=== PATIENT | male | born 1950 | race Two or more races ===

== ENCOUNTER → 2018-08-30 | Outpatient (CLI) | payer OTHER ==
[2018-08-30 16:03] LABS: Basophils # (auto) 0 uL; Basophils % (auto) 0.3 % (0.0-2.0); Eosinophils # (auto) 0.1 uL; Hematocrit 39.5 % (41.0-53.0); Lymphocytes # (auto) 1.8 uL; Lymphocytes % (auto) 32.7 % (10.0-50.0); Mean Corpuscular Hemoglobin 29.2 pg (28.0-32.0); Mean Corpuscular Hgb Conc. 32.9 g/dL (32.0-36.0); Mean Corpuscular Volume 88.8 fL (80.0-100.0); Monocytes # (auto) 0.4 uL; Monocytes % (auto) 7.4 % (0.0-12.0); Neutrophils # (auto) 3.1 uL; Neutrophils % (auto) 57.6 % (37.0-80.0); Nucleated Red Blood Cells % 0.1 %; Platelet Count (auto) 272 10^3/uL (140-450); Red Blood Cells 4.45 10^6/uL (4.5-5.90); Red Cell Distribution Width 14.3 % (11.8-14.3); White Blood Cell 5.4 10^3/uL (4.4-10.8)
[2018-08-30 16:20] LABS: Albumin 3.3 g/dL (3.4-5.0); Potassium 3.4 mmol/L (3.5-5.1)
[2018-08-30 16:24] LABS: BUN/Creatinine Ratio 18.6; Bilirubin, Total 0.6 mg/dL (0.2-1.0); Total Protein 7.7 g/dL (6.4-8.2)
[2018-08-30 16:29] LABS: Free T4 (Free Thyroxine) 0.92 ng/dL (0.89-1.76); Prostate Specific Antigen 0.21 ng/mL (0.0-4.0)
== END | disposition home or self-care (01) ==
LOC: LAB 15:32
PROVIDERS: ATTEND Internal Medicine
DX: M16.9 Osteoarthritis of hip, unspecified (principal); E66.9 Obesity, unspecified; G89.29 Other chronic pain
CPT/HCPCS: 36415; 80053; 80061; 84153; 84439; 84443; 85025; 85652

== ENCOUNTER → 2018-10-11 | Outpatient (CLI) | payer OTHER | END | disposition home or self-care (01) | LOC: LAB 16:03 | PROVIDERS: ATTEND Urology | DX: N40.0 Benign prostatic hyperplasia without lower urinary tract symptoms (principal) | CPT/HCPCS: 87086 ==

== ENCOUNTER 2023-07-26 12:21 | Inpatient (IN) | payer OTHER ==
[~2023-07-26] VITALS: Ht 175.3 cm; Wt 192.4 kg
[2023-07-26 13:58] LABS: Basophils # (auto) 0 10 ^3/uL (0-0.2); Eosinophils # (auto) 0.1 10 ^3/uL (0-0.8); Lymphocytes # (auto) 1.7 10 ^3/uL (0.4-5.4); Lymphocytes % (auto) 20.9 % (10.0-50.0); Monocytes # (auto) 0.7 10 ^3/uL (0-1.3); Neutrophils # (auto) 5.7 10 ^3/uL (1.6-8.6); Nucleated Red Blood Cells % 0.1 %; Red Cell Distribution Width 14.8 % (11.8-14.3)
[2023-07-26 14:00] LABS: Basophils % (auto) 0.6 % (0.0-2.0); Eosinophils % (auto) 1.1 % (0.0-7.0); Hematocrit 36.2 % (41.0-53.0); Hemoglobin 11.6 g/dL (13.5-17.5); Mean Corpuscular Hemoglobin 27.9 pg (28.0-32.0); Mean Corpuscular Hgb Conc. 31.9 g/dL (32.0-36.0); Mean Corpuscular Volume 87.5 fL (80.0-100.0); Monocytes % (auto) 8.1 % (0.0-12.0); Neutrophils % (auto) 69.3 % (37.0-80.0); Red Blood Cells 4.14 10^6/uL (4.5-5.90); White Blood Cell 8.2 10^3/uL (4.4-10.8)
[2023-07-26 14:12] LABS: Alanine Aminotransferase 19 U/L (7-40); Alkaline Phosphatase 101 U/L (46-116); Calcium 9.9 mg/dL (8.7-10.4); Carbon Dioxide 28 mmol/L (20-30); Chloride 104 mmol/L (98-107)
[2023-07-26 14:13] LABS: Albumin 4.4 g/dL (3.2-4.8); Anion Gap 8 (5-15); Aspartate Aminotransferase 22 U/L (13-40); BUN/Creatinine Ratio 23.4 (10.0-20.0); Bilirubin, Total 0.4 mg/dL (0.2-1.0); Blood Urea Nitrogen 18 mg/dL (9-23); Creatine Kinase IFCC 181 U/L (46-171); Glucose 99 mg/dL (74-106); Magnesium 2.2 mg/dL (1.6-2.6); Sodium 140 mmol/L (136-145)
[2023-07-26 14:21] LABS: INR 1.12 (0.9-1.15); Partial Thromboplastin Time 24.4 SEC (24.5-34.5); Prothrombin Time 11.8 sec (9.3-11.8)
[2023-07-26] MEDS: LACTATED RINGER'S 2,000 ML IV ONE (16:15)
[2023-07-26 21:10] LABS: Urine Bacteria None Seen /hpf (None Seen)
[2023-07-26 21:44] LABS: Urine Blood 1+ /uL (Negative); Urine Clarity Ex.Turbid (Clear); Urine Color Light-Orange (Yellow); Urine Mucus FEW (None Seen); Urine Protein, UAD 2+ (Negative); Urine Specific Gravity 1.028 (1.001-1.035); Urine Urobilinogen Normal (Negative); Urine WBC 1968 /hpf (0 - 3); Urine WBC Clumps PRESENT /hpf (None Seen)
[2023-07-26] MEDS ORDERED: ONDANSETRON HCL 4 MG/2 ML VIAL IV PRN (21:45)
[2023-07-26] MEDS: ATORVASTATIN 20 MG TAB PO SCH (22:15)
[2023-07-27] VITALS (9 sets, daily range): BP systolic 114–133; BP diastolic 50–73; PULSE 77–88; RESP 19–20; TEMP 97.8–98.4; O2SAT 95–97
[2023-07-27 05:05] LABS: Basophils # (auto) 0 10 ^3/uL (0-0.2); Basophils % (auto) 0.4 % (0.0-2.0); Chloride 106 mmol/L (98-107); Eosinophils # (auto) 0.3 10 ^3/uL (0-0.8); Eosinophils % (auto) 3.2 % (0.0-7.0); Hematocrit 31.8 % (41.0-53.0); Hemoglobin 10.2 g/dL (13.5-17.5); Lymphocytes # (auto) 2.1 10 ^3/uL (0.4-5.4); Lymphocytes % (auto) 26.6 % (10.0-50.0); Mean Corpuscular Hgb Conc. 32.1 g/dL (32.0-36.0); Mean Corpuscular Volume 87.3 fL (80.0-100.0); Monocytes # (auto) 0.6 10 ^3/uL (0-1.3); Monocytes % (auto) 7.7 % (0.0-12.0); Neutrophils % (auto) 62.1 % (37.0-80.0); Nucleated Red Blood Cells % 0.1 %; Potassium 3.5 mmol/L (3.5-5.1); Red Blood Cells 3.64 10^6/uL (4.5-5.90); Red Cell Distribution Width 14.9 % (11.8-14.3); Sodium 140 mmol/L (136-145)
[2023-07-27 05:06] LABS: Anion Gap 9 (5-15); Carbon Dioxide 25 mmol/L (20-30)
[2023-07-27 05:07] LABS: Calcium 9.4 mg/dL (8.7-10.4)
[2023-07-27 05:11] LABS: BUN/Creatinine Ratio 18.5 (10.0-20.0); Blood Urea Nitrogen 12 mg/dL (9-23); Glucose 97 mg/dL (74-106)
[2023-07-27] MEDS: LISINOPRIL 5 MG TAB PO SCH (09:25)
[2023-07-27] MEDS: ENOXAPARIN SOD 40 MG/0.4 ML SYRINGE SC SCH (09:26)
[2023-07-27] MEDS: SERTRALINE HCL 50 MG TAB PO SCH (09:26)
[2023-07-27] MEDS: ACETAMINOPHEN 325 MG TAB PO PRN (09:27)
[2023-07-27] MEDS: cefTRIAXone 1GM/50ML D5W 50 ML IV ONE (12:34)
[2023-07-27] MEDS: TAMSULOSIN HYDROCHLORIDE 0.4 MG CAP PO SCH (17:38)
[2023-07-27] MEDS: LACTULOSE 20Gm/30ML SOLN PO ONE (17:38)
[2023-07-27] MEDS: DOCUSATE SOD 100 MG CAP PO SCH (21:18)
[2023-07-28] VITALS (8 sets, daily range): BP systolic 100–133; BP diastolic 48–84; PULSE 61–86; RESP 18–22; TEMP 97.1–99.1; O2SAT 91–96
[2023-07-28 08:06] LABS: PSA Free 0.06 ng/mL; Prostate Specific Antigen 0.8 ng/mL (0.0-4.0)
[2023-07-28] MEDS: cefTRIAXone 1GM/50ML D5W 50 ML IV SCH (09:33)
[2023-07-28] MEDS: LACTULOSE 20Gm/30ML SOLN PO SCH (09:33)
[2023-07-29] VITALS (7 sets, daily range): BP systolic 100–123; BP diastolic 53–72; PULSE 75–87; RESP 18–19; TEMP 97.1–98.8; O2SAT 93–98
[2023-07-30] VITALS (7 sets, daily range): BP systolic 96–130; BP diastolic 46–71; PULSE 68–87; RESP 18–20; TEMP 97.9–98.3; O2SAT 93–96
[2023-07-31] VITALS (9 sets, daily range): BP systolic 103–122; BP diastolic 36–70; PULSE 55–80; RESP 16–71; TEMP 36.6–37; O2SAT 93–99
[2023-07-31] MEDS: HYDROcodone-ACET 5/325MG TAB PO PRN (03:10)
[2023-08-01] VITALS (8 sets, daily range): BP systolic 95–120; BP diastolic 45–64; PULSE 60–76; RESP 16–21; TEMP 36.7; O2SAT 93–97
[2023-08-02 05:00] VITALS: BP 109/45; PULSE 68; RESP 18; TEMP 98.6; O2SAT 100
[2023-08-02 17:00] VITALS: BP 110/54; PULSE 71; RESP 20; TEMP 98.6; O2SAT 97
[2023-08-02 21:00] VITALS: BP 115/47; PULSE 73; TEMP 98.3; O2SAT 95
[2023-08-03 04:42] VITALS: BP 94/60; PULSE 73; RESP 20; TEMP 98.2; O2SAT 93
[2023-08-03 09:00] VITALS: BP 112/56; PULSE 68; RESP 18; TEMP 98; O2SAT 95
[2023-08-03 13:00] VITALS: BP 140/75; PULSE 68; RESP 20; TEMP 97.9; O2SAT 95
[2023-08-03 17:00] VITALS: BP 114/52; PULSE 73; RESP 17; TEMP 98.2; O2SAT 98
== END 2023-08-03 20:30 | disposition hospice, home (50) | DRG 690 ==
LOC: ER 12:21 → EDBD 12:21 → OVERFLOW 21:40 → WEST WING 23:34
PROVIDERS: ADMIT Internal Medicine Geriatric Medicine; ATTEND Internal Medicine Geriatric Medicine
DX: N39.0 Urinary tract infection, site not specified (principal); Z68.44 Body mass index [BMI] 60.0-69.9, adult; E66.01 Morbid (severe) obesity due to excess calories; Z51.5 Encounter for palliative care; I10 Essential (primary) hypertension; M19.09 Primary osteoarthritis, other specified site; L89.899 Pressure ulcer of other site, unspecified stage; Z74.01 Bed confinement status; Z85.46 Personal history of malignant neoplasm of prostate; Z79.899 Other long term (current) drug therapy; N40.1 Benign prostatic hyperplasia with lower urinary tract symptoms
CPT/HCPCS: 36415; 71045; 72170; 80048; 80053; 81001; 82550; 83735; 84154; 84443; 85025; 85610; 85730; 87081; 87086; 97110; 97116; 97163; 97530; G0378

== ENCOUNTER 2023-09-27 06:58 | Inpatient (IN) | payer OTHER, MEDICAID ==
[~2023-09-27] VITALS: Ht 193 cm; Wt 183.0 kg
[2023-09-27 08:46] LABS: Chloride 108 mmol/L (98-107); Potassium 4.5 mmol/L (3.5-5.1); Sodium 141 mmol/L (136-145)
[2023-09-27 08:47] LABS: Anion Gap 6 (5-15); Calcium 8.9 mg/dL (8.5-10.1); Carbon Dioxide 27 mmol/L (20-30)
[2023-09-27 08:52] LABS: BUN/Creatinine Ratio 22.7 (10.0-20.0); Blood Urea Nitrogen 15 mg/dL (9-23); Glucose 110 mg/dL (74-106)
[2023-09-27 09:31] LABS: Basophils # (auto) 0 10 ^3/uL (0-0.2); Basophils % (auto) 0.4 % (0.0-2.0); Eosinophils # (auto) 0.2 10 ^3/uL (0-0.8); Eosinophils % (auto) 4.1 % (0.0-7.0); Hematocrit 37.2 % (41.0-53.0); Hemoglobin 11.8 g/dL (13.5-17.5); Lymphocytes # (auto) 1.5 10 ^3/uL (0.4-5.4); Lymphocytes % (auto) 24.3 % (10.0-50.0); Mean Corpuscular Hemoglobin 28.3 pg (28.0-32.0); Mean Corpuscular Hgb Conc. 31.7 g/dL (32.0-36.0); Mean Corpuscular Volume 89.1 fL (80.0-100.0); Monocytes # (auto) 0.7 10 ^3/uL (0-1.3); Monocytes % (auto) 11.3 % (0.0-12.0); Neutrophils # (auto) 3.6 10 ^3/uL (1.6-8.6); Neutrophils % (auto) 59.9 % (37.0-80.0); Nucleated Red Blood Cells % 0.1 %; Red Blood Cells 4.18 10^6/uL (4.5-5.90); Red Cell Distribution Width 16.2 % (11.8-14.3)
[2023-09-27 10:04] VITALS: PULSE 64; RESP 16; O2SAT 93
[2023-09-27 10:07] LABS: Urine Bacteria None Seen /hpf (None Seen)
[2023-09-27 10:24] LABS: Urine Blood Negative /uL (Negative); Urine Clarity Clear (Clear); Urine Color Yellow (Yellow); Urine Mucus FEW (None Seen); Urine Protein, UAD Negative (Negative); Urine Specific Gravity 1.026 (1.001-1.035); Urine Urobilinogen 3 mg/dL (Negative); Urine WBC 1 /hpf (0 - 3)
[2023-09-27] MEDS: ROCURONIUM 10MG/ML 10ML VIAL IV ONE (12:22)
[2023-09-27] MEDS: ETOMIDATE (2MG/ML) 20ML VIAL IV ONE (12:22)
[2023-09-27] MEDS ORDERED: NAP500T PO (12:37)
[2023-09-27] MEDS ORDERED: ATOR40TA52 PO (12:37)
[2023-09-27] MEDS ORDERED: LISI-275 PO (12:37)
[2023-09-27] MEDS ORDERED: SERT-289 PO (12:37)
[2023-09-27] MEDS ORDERED: TAMS0.4C36 PO (12:37)
[2023-09-27] MEDS ORDERED: ACET-1882 PO (12:37)
[2023-09-27] MEDS ORDERED: MECL-126 PO (12:37)
[2023-09-27] MEDS ORDERED: SODIUM CHLORIDE 0.9% 1,000 ML IV SCH (12:45)
[2023-09-27] MEDS ORDERED: HYDROcodone-ACET 5/325MG TAB PO PRN (13:45)
[2023-09-27] MEDS ORDERED: ACETAMINOPHEN 325 MG TAB PO PRN (13:45)
[2023-09-27 14:11] LABS: Triglycerides 73 mg/dL (< 150)
[2023-09-27 14:12] LABS: LDL Cholesterol 122 mg/dL (< 100)
[2023-09-27 14:13] LABS: Cholesterol 174 mg/dL (< 200); HDL Cholesterol 45 mg/dL (40-59)
[2023-09-27] MEDS: HYDROcodone-ACET 5/325MG TAB PO PRN (15:43)
[2023-09-27 17:21] VITALS: BP 121/52; PULSE 71; RESP 20; TEMP 97.7; O2SAT 96
[2023-09-27 20:00] VITALS: RESP 22; O2SAT 100
[2023-09-27 21:00] VITALS: BP 120/62; PULSE 69; RESP 22; TEMP 97.9; O2SAT 100
[2023-09-27] MEDS: ATORVASTATIN 20 MG TAB PO SCH (21:46)
[2023-09-28] VITALS (8 sets, daily range): BP systolic 100–120; BP diastolic 43–64; PULSE 55–75; RESP 16–22; TEMP 97–98.8; O2SAT 94–100
[2023-09-28 06:37] LABS: Basophils # (auto) 0 10 ^3/uL (0-0.2); Basophils % (auto) 0.3 % (0.0-2.0); Eosinophils # (auto) 0.3 10 ^3/uL (0-0.8); Eosinophils % (auto) 6.7 % (0.0-7.0); Hematocrit 36.8 % (41.0-53.0); Hemoglobin 11.6 g/dL (13.5-17.5); Lymphocytes # (auto) 1.3 10 ^3/uL (0.4-5.4); Lymphocytes % (auto) 25.5 % (10.0-50.0); Mean Corpuscular Hemoglobin 28.3 pg (28.0-32.0); Mean Corpuscular Hgb Conc. 31.5 g/dL (32.0-36.0); Mean Corpuscular Volume 89.7 fL (80.0-100.0); Monocytes # (auto) 0.4 10 ^3/uL (0-1.3); Monocytes % (auto) 8.9 % (0.0-12.0); Neutrophils # (auto) 2.9 10 ^3/uL (1.6-8.6); Neutrophils % (auto) 58.6 % (37.0-80.0); Nucleated Red Blood Cells % 0.1 %; Red Blood Cells 4.11 10^6/uL (4.5-5.90); Red Cell Distribution Width 16.8 % (11.8-14.3); White Blood Cell 4.9 10^3/uL (4.4-10.8)
[2023-09-28 06:42] LABS: Alkaline Phosphatase 61 U/L (46-116); Anion Gap 3 (5-15); BUN/Creatinine Ratio 12.5 (10.0-20.0); Blood Urea Nitrogen 8 mg/dL (9-23); Calcium 9.2 mg/dL (8.7-10.4); Carbon Dioxide 29 mmol/L (20-30); Chloride 108 mmol/L (98-107); Glucose 108 mg/dL (74-106); Potassium 4.2 mmol/L (3.5-5.1); Sodium 140 mmol/L (136-145)
[2023-09-28 06:43] LABS: Alanine Aminotransferase < 9 U/L (7-40); Albumin 3.4 g/dL (3.2-4.8); Aspartate Aminotransferase 13 U/L (13-40); Bilirubin, Total 0.4 mg/dL (0.2-1.0); Total Protein 6.5 g/dL (5.7-8.2)
[2023-09-28] MEDS: SERTRALINE HCL 50 MG TAB PO SCH (09:28)
[2023-09-28] MEDS: TAMSULOSIN HYDROCHLORIDE 0.4 MG CAP PO SCH (09:28)
[2023-09-28] MEDS: ENOXAPARIN SOD 40 MG/0.4 ML SYRINGE SC SCH (09:29)
[2023-09-28] MEDS: LISINOPRIL 5 MG TAB PO SCH (09:30)
[2023-09-28] MEDS ORDERED: ENOXAPARIN SOD 40 MG/0.4 ML SYRINGE SC SCH (10:00)
[2023-09-28] MEDS: ATORVASTATIN 20 MG TAB PO SCH (21:36)
[2023-09-29 01:00] VITALS: BP 118/52; PULSE 73; RESP 17; TEMP 98.6; O2SAT 96
[2023-09-29 05:00] VITALS: BP 116/53; PULSE 64; RESP 17; TEMP 98.4; O2SAT 94
[2023-09-29 08:00] VITALS: BP 101/59; PULSE 64; RESP 20; TEMP 97.7; O2SAT 100
[2023-09-29 08:06] LABS: PSA Free 0.05 ng/mL; Prostate Specific Antigen 0.5 ng/mL (0.0-4.0)
[2023-09-29 12:00] VITALS: BP 117/51; PULSE 69; RESP 18; TEMP 97.9; O2SAT 97
[2023-09-29 16:00] VITALS: BP 104/56; PULSE 73; RESP 18; TEMP 97.8; O2SAT 96
[2023-09-29] MEDS: PANTOPRAZOLE 40 MG/10 ML VIAL INJ IV SCH (17:00)
[2023-09-29 21:00] VITALS: BP 116/42; PULSE 64; RESP 18; TEMP 98.1; O2SAT 93
[2023-09-30 01:00] VITALS: BP 111/44; PULSE 65; RESP 18; TEMP 98.4; O2SAT 95
[2023-09-30 05:00] VITALS: BP 112/61; PULSE 72; RESP 18; TEMP 98.3; O2SAT 94
[2023-09-30 09:00] VITALS: BP 107/53; PULSE 63; RESP 18; TEMP 98.3; O2SAT 93
[2023-09-30 13:00] VITALS: BP 110/53; PULSE 67; RESP 20; TEMP 98.1; O2SAT 91
[2023-09-30 17:00] VITALS: BP 110/66; PULSE 70; RESP 19; TEMP 98; O2SAT 98
[2023-09-30] MEDS: IBUPROFEN 800 MG TAB PO SCH (17:33)
[2023-09-30 21:00] VITALS: BP 95/46; PULSE 61; RESP 18; TEMP 98.5; O2SAT 95
[2023-10-01] VITALS (7 sets, daily range): BP systolic 94–115; BP diastolic 29–58; PULSE 56–73; RESP 18–20; TEMP 96.7–98.5; O2SAT 93–98
[2023-10-02] VITALS (8 sets, daily range): BP systolic 97–110; BP diastolic 42–68; PULSE 55–70; RESP 19–20; TEMP 97.5–98.5; O2SAT 93–97
[2023-10-03] VITALS (7 sets, daily range): BP systolic 95–114; BP diastolic 39–60; PULSE 53–74; RESP 17–19; TEMP 97.5–98; O2SAT 93–99
[2023-10-04] VITALS (8 sets, daily range): BP systolic 105–127; BP diastolic 51–65; PULSE 57–66; RESP 18–19; TEMP 97.6–98; O2SAT 94–98
[2023-10-04] MEDS: CYANOCOBALAMIN (B-12) 1000 MCG/1 ML VIAL IM ONE (18:24)
[2023-10-05] VITALS (7 sets, daily range): BP systolic 105–121; BP diastolic 45–58; PULSE 62–65; RESP 17–21; TEMP 97.3–98.4; O2SAT 93–97
[2023-10-05 06:53] LABS: Basophils # (auto) 0 10 ^3/uL (0-0.2); Basophils % (auto) 0.3 % (0.0-2.0); Eosinophils # (auto) 0.4 10 ^3/uL (0-0.8); Eosinophils % (auto) 6.3 % (0.0-7.0); Hematocrit 37.5 % (41.0-53.0); Hemoglobin 12.1 g/dL (13.5-17.5); Lymphocytes # (auto) 1.9 10 ^3/uL (0.4-5.4); Lymphocytes % (auto) 32.7 % (10.0-50.0); Mean Corpuscular Hemoglobin 28.4 pg (28.0-32.0); Mean Corpuscular Hgb Conc. 32.3 g/dL (32.0-36.0); Mean Corpuscular Volume 88.1 fL (80.0-100.0); Monocytes # (auto) 0.7 10 ^3/uL (0-1.3); Monocytes % (auto) 12.1 % (0.0-12.0); Neutrophils # (auto) 2.9 10 ^3/uL (1.6-8.6); Neutrophils % (auto) 48.6 % (37.0-80.0); Nucleated Red Blood Cells % 0.1 %; Red Blood Cells 4.26 10^6/uL (4.5-5.90); Red Cell Distribution Width 16.1 % (11.8-14.3); White Blood Cell 5.9 10^3/uL (4.4-10.8)
[2023-10-05 07:05] LABS: Alanine Aminotransferase 10 U/L (7-40); Albumin 3.5 g/dL (3.2-4.8); Alkaline Phosphatase 66 U/L (46-116); Anion Gap 7 (5-15); BUN/Creatinine Ratio 25.4 (10.0-20.0); Blood Urea Nitrogen 15 mg/dL (9-23); Calcium 9.3 mg/dL (8.7-10.4); Carbon Dioxide 27 mmol/L (20-30); Chloride 105 mmol/L (98-107); Glucose 95 mg/dL (74-106); Magnesium 1.7 mg/dL (1.6-2.6); Sodium 139 mmol/L (136-145)
[2023-10-05 07:06] LABS: Aspartate Aminotransferase 17 U/L (13-40)
[2023-10-05 07:07] LABS: Bilirubin, Total 0.5 mg/dL (0.2-1.0); Total Protein 6.2 g/dL (5.7-8.2)
[2023-10-05] MEDS: CYANOCOBALAMIN 500 MCG TAB PO SCH (10:45)
[2023-10-06] VITALS (8 sets, daily range): BP systolic 104–127; BP diastolic 46–59; PULSE 56–69; RESP 17–22; TEMP 97.7–98.3; O2SAT 93–96
[2023-10-07 05:00] VITALS: BP 88/52; PULSE 63; RESP 19; TEMP 97.8; O2SAT 95
[2023-10-07 08:00] VITALS: PULSE 56; RESP 17; O2SAT 98
[2023-10-07 08:57] VITALS: BP 108/50; PULSE 60; RESP 16; TEMP 98.7; O2SAT 98
[2023-10-07 12:12] VITALS: BP 113/60; PULSE 56; RESP 17; TEMP 98; O2SAT 98
[2023-10-07] MEDS: MECLIZINE HCL 25 MG TAB PO PRN (15:50)
[2023-10-07 17:14] VITALS: BP 121/59; PULSE 60; RESP 16; TEMP 97.8; O2SAT 98
[2023-10-07] MEDS: IBUPROFEN 800 MG TAB PO SCH (20:37)
[2023-10-07 21:00] VITALS: BP 95/52; PULSE 64; RESP 17; TEMP 98.4; O2SAT 93
[2023-10-08] VITALS (8 sets, daily range): BP systolic 103–119; BP diastolic 38–66; PULSE 55–68; RESP 16–18; TEMP 97.9–98.8; O2SAT 91–96
[2023-10-09] VITALS (8 sets, daily range): BP systolic 103–114; BP diastolic 48–63; PULSE 60–69; RESP 16–20; TEMP 98–99; O2SAT 93–95
[2023-10-10] VITALS (8 sets, daily range): BP systolic 100–112; BP diastolic 41–68; PULSE 57–63; RESP 16–21; TEMP 97.8–98.5; O2SAT 93–99
[2023-10-11] VITALS (7 sets, daily range): BP systolic 106–137; BP diastolic 44–78; PULSE 54–60; RESP 18–20; TEMP 97.5–98.3; O2SAT 92–96
[2023-10-11] MEDS: ACETAMINOPHEN 325 MG TAB PO PRN (00:04)
[2023-10-12] VITALS (8 sets, daily range): BP systolic 88–109; BP diastolic 47–60; PULSE 52–72; RESP 16–20; TEMP 97.6–97.9; O2SAT 93–100
[2023-10-12] MEDS: MORPHINE SULFATE INJ 2 MG/ml SYRG IV ONE (19:23)
== END 2023-10-12 21:17 | disposition hospice, home (50) | DRG 554 ==
LOC: EDBD 06:58 → ER 07:01 → OVERFLOW 12:36 → CENTRAL 14:49
PROVIDERS: ADMIT Internal Medicine Geriatric Medicine; ATTEND Internal Medicine Geriatric Medicine
DX: M16.0 Bilateral primary osteoarthritis of hip (principal); Z68.43 Body mass index [BMI] 50.0-59.9, adult; E66.01 Morbid (severe) obesity due to excess calories; I10 Essential (primary) hypertension; N40.0 Benign prostatic hyperplasia without lower urinary tract symptoms; H81.10 Benign paroxysmal vertigo, unspecified ear; R62.7 Adult failure to thrive; E78.5 Hyperlipidemia, unspecified; Z74.01 Bed confinement status
CPT/HCPCS: 36415; 72128; 72192; 80048; 80053; 80061; 81001; 82607; 82746; 82962; 83036; 83735; 84154; 84443; 85025; 87081; 97110; 97116; 97163; 97530; G0378; J2470

== ENCOUNTER 2023-10-13 00:26 | Inpatient (IN) | payer OTHER, MEDICAID ==
[~2023-10-13] VITALS: Ht 175.3 cm; Wt 177.0 kg
[~2023-10-13 00:26] MED LIST: ACET-1882 PO; ATOR40TA52 PO; LISI-275 PO; MECL-126 PO; NAP500T PO; SERT-289 PO; TAMS0.4C36 PO
[2023-10-13 02:02] LABS: Basophils # (auto) 0 10 ^3/uL (0-0.2); Basophils % (auto) 0.4 % (0.0-2.0); Eosinophils # (auto) 0.2 10 ^3/uL (0-0.8); Eosinophils % (auto) 2.3 % (0.0-7.0); Hematocrit 38.3 % (41.0-53.0); Hemoglobin 12.6 g/dL (13.5-17.5); Lymphocytes # (auto) 1.2 10 ^3/uL (0.4-5.4); Lymphocytes % (auto) 13.8 % (10.0-50.0); Mean Corpuscular Hemoglobin 28.8 pg (28.0-32.0); Mean Corpuscular Hgb Conc. 32.9 g/dL (32.0-36.0); Mean Corpuscular Volume 87.5 fL (80.0-100.0); Monocytes # (auto) 0.7 10 ^3/uL (0-1.3); Monocytes % (auto) 8.6 % (0.0-12.0); Neutrophils # (auto) 6.5 10 ^3/uL (1.6-8.6); Neutrophils % (auto) 74.9 % (37.0-80.0); Red Blood Cells 4.37 10^6/uL (4.5-5.90); Red Cell Distribution Width 15.5 % (11.8-14.3); White Blood Cell 8.7 10^3/uL (4.4-10.8)
[2023-10-13 02:16] LABS: INR 1.04 (0.9-1.15); Partial Thromboplastin Time 25.9 SEC (24.5-34.5)
[2023-10-13 02:17] LABS: Alanine Aminotransferase 10 U/L (7-40); Alkaline Phosphatase 75 U/L (46-116); Anion Gap 6 (5-15); Aspartate Aminotransferase 13 U/L (13-40); Bilirubin, Total 0.4 mg/dL (0.2-1.0); Blood Urea Nitrogen 17 mg/dL (9-23); Calcium 9.7 mg/dL (8.7-10.4); Carbon Dioxide 26 mmol/L (20-30); Chloride 103 mmol/L (98-107); Glucose 123 mg/dL (74-106); Potassium 3.8 mmol/L (3.5-5.1); Sodium 135 mmol/L (136-145); Total Protein 7.4 g/dL (5.7-8.2)
[2023-10-13 02:40] LABS: Urine Bacteria FEW /hpf (None Seen); Urine Blood 1+ /uL (Negative); Urine Clarity Ex.Turbid (Clear); Urine Color Light-Orange (Yellow); Urine Mucus FEW (None Seen); Urine Protein, UAD 3+ (Negative); Urine Specific Gravity 1.027 (1.001-1.035); Urine Urobilinogen 3 mg/dL (Negative); Urine WBC 1141 /hpf (0 - 3)
[2023-10-13] MEDS: levETIRAcetam 1000 mg/100ml 100 ML IV ONE (02:50)
[2023-10-13] MEDS ORDERED: ACETAMINOPHEN 325 MG TAB PO PRN (08:30)
[2023-10-13] MEDS ORDERED: MECLIZINE HCL 25 MG TAB PO PRN (08:30)
[2023-10-13] MEDS ORDERED: MORPHINE SULFATE INJ 2 MG/ml SYRG IV PRN (08:30)
[2023-10-13] MEDS ORDERED: NITROGLYCERIN 0.4 MG SL TAB SL PRN (08:30)
[2023-10-13 09:13] VITALS: PULSE 77; RESP 14; O2SAT 94
[2023-10-13 10:22] LABS: Triglycerides 61 mg/dL (< 150)
[2023-10-13 10:23] LABS: LDL Cholesterol 83 mg/dL (< 100)
[2023-10-13 10:24] LABS: Cholesterol 128 mg/dL (< 200); HDL Cholesterol 38 mg/dL (40-59)
[2023-10-13] MEDS: cefTRIAXone 1GM/50ML D5W 50 ML IV ONE (10:36)
[2023-10-13] MEDS: ATORVASTATIN 20 MG TAB PO SCH (10:36)
[2023-10-13] MEDS: TAMSULOSIN HYDROCHLORIDE 0.4 MG CAP PO SCH (10:37)
[2023-10-13] MEDS: NAPROXEN 500 MG TAB PO SCH (10:37)
[2023-10-13] MEDS: MULTIPLE VITAMIN TAB PO SCH (10:38)
[2023-10-13] MEDS: SERTRALINE HCL 50 MG TAB PO SCH (10:38)
[2023-10-13] MEDS: HYDROcodone-ACET 10/325MG TAB PO SCH (10:38)
[2023-10-13] MEDS: ENOXAPARIN SOD 40 MG/0.4 ML SYRINGE SC SCH (10:39)
[2023-10-13] MEDS: LISINOPRIL 5 MG TAB PO SCH (10:41)
[2023-10-13] MEDS: SODIUM CHLORIDE 0.9% 1,000 ML IV SCH (10:41)
[2023-10-13] MEDS: NutriHep RTU 240 mL Unflavored PO SCH (12:00)
[2023-10-13] MEDS: Ensure HIGH Protein Chocolate 8oz Bottle PO SCH (18:00)
[2023-10-13 19:30] VITALS: PULSE 71; RESP 17; O2SAT 98
[2023-10-13] MEDS ORDERED: LORazepam 2MG/ML-1ML VIAL IV PRN (23:15)
[2023-10-13 23:25] VITALS: PULSE 66; RESP 20; O2SAT 92
[2023-10-14] VITALS (10 sets, daily range): BP systolic 103–135; BP diastolic 34–82; PULSE 57–71; RESP 17–20; TEMP 97.3–98; O2SAT 92–97
[2023-10-14 06:12] LABS: Basophils # (auto) 0 10 ^3/uL (0-0.2); Basophils % (auto) 0.3 % (0.0-2.0); Eosinophils # (auto) 0.4 10 ^3/uL (0-0.8); Eosinophils % (auto) 6.1 % (0.0-7.0); Hematocrit 35.9 % (41.0-53.0); Hemoglobin 11.7 g/dL (13.5-17.5); Lymphocytes % (auto) 32.3 % (10.0-50.0); Mean Corpuscular Hemoglobin 28.5 pg (28.0-32.0); Mean Corpuscular Hgb Conc. 32.5 g/dL (32.0-36.0); Mean Corpuscular Volume 87.7 fL (80.0-100.0); Monocytes # (auto) 0.7 10 ^3/uL (0-1.3); Monocytes % (auto) 10.3 % (0.0-12.0); Neutrophils # (auto) 3.2 10 ^3/uL (1.6-8.6); Nucleated Red Blood Cells % 0.1 %; Red Cell Distribution Width 15.6 % (11.8-14.3); White Blood Cell 6.4 10^3/uL (4.4-10.8)
[2023-10-14 06:40] LABS: Alanine Aminotransferase 11 U/L (7-40); Albumin 3.9 g/dL (3.2-4.8); Alkaline Phosphatase 75 U/L (46-116); Anion Gap 7 (5-15); Aspartate Aminotransferase 13 U/L (13-40); BUN/Creatinine Ratio 22.2 (10.0-20.0); Blood Urea Nitrogen 14 mg/dL (9-23); Calcium 9.2 mg/dL (8.7-10.4); Carbon Dioxide 26 mmol/L (20-30); Chloride 103 mmol/L (98-107); Glucose 101 mg/dL (74-106); Potassium 3.8 mmol/L (3.5-5.1); Sodium 136 mmol/L (136-145)
[2023-10-14 06:41] LABS: Bilirubin, Total 0.3 mg/dL (0.2-1.0); Total Protein 6.8 g/dL (5.7-8.2)
[2023-10-14] MEDS: cefTRIAXone 1GM/50ML D5W 50 ML IV SCH (12:00)
[2023-10-14] MEDS: HYDROcodone-ACET 10/325MG TAB PO PRN (21:27)
[2023-10-15] VITALS (9 sets, daily range): BP systolic 97–148; BP diastolic 39–60; PULSE 53–80; RESP 14–20; TEMP 97.5–98.2; O2SAT 93–98
[2023-10-16] VITALS (7 sets, daily range): BP systolic 59–128; BP diastolic 42–51; PULSE 60–80; RESP 17–20; TEMP 97.7–98.6; O2SAT 93–97
[2023-10-16] MEDS: guaiFENesin-DM 100/10mg/5ml SYR PO PRN (10:53)
[2023-10-16 12:38] LABS: COVID19 ANTIGEN SOFIA FIA NEGATIVE (NEGATIVE)
[2023-10-16 15:16] LABS: Urine Bacteria None Seen /hpf (None Seen); Urine Blood 2+ /uL (Negative); Urine Clarity Turbid (Clear); Urine Color Yellow (Yellow); Urine Mucus MODERATE (None Seen); Urine Protein, UAD 1+ (Negative); Urine Specific Gravity 1.019 (1.001-1.035); Urine Urobilinogen Normal (Negative); Urine WBC 226 /hpf (0 - 3); Urine pH 6.5 (5.0-9.0)
== END 2023-10-16 20:50 | DRG 699 ==
LOC: ER 00:26 → EDBD 00:26 → TELE 09:34 → TELE-WESTW 09:34 → TELE 17:42 → TELE-WESTW 23:21
PROVIDERS: ADMIT Nurse Practitioner Family; ATTEND Family Medicine
PROC: 05H933Z Insertion of Infusion Device into Right Brachial Vein, Percutaneous Approach (ICD-10-PCS; principal; 2023-10-16)
PROC: B54MZZA Ultrasonography of Right Upper Extremity Veins, Guidance (ICD-10-PCS; 2023-10-16)
DX: T83.511A Infection and inflammatory reaction due to indwelling urethral catheter, initial encounter (principal); Z68.42 Body mass index [BMI] 45.0-49.9, adult; I95.1 Orthostatic hypotension; F32.A Depression, unspecified; N40.0 Benign prostatic hyperplasia without lower urinary tract symptoms; E66.01 Morbid (severe) obesity due to excess calories; I10 Essential (primary) hypertension; E78.00 Pure hypercholesterolemia, unspecified; Z20.822 Contact with and (suspected) exposure to COVID-19; F17.200 Nicotine dependence, unspecified, uncomplicated; M16.11 Unilateral primary osteoarthritis, right hip; S76.111A Strain of right quadriceps muscle, fascia and tendon, initial encounter; X58.XXXA Exposure to other specified factors, initial encounter; Z85.46 Personal history of malignant neoplasm of prostate; Z74.01 Bed confinement status; Z83.3 Family history of diabetes mellitus; Z84.1 Family history of disorders of kidney and ureter; Y93.89 Activity, other specified; Y92.89 Other specified places as the place of occurrence of the external cause; Y99.8 Other external cause status
CPT/HCPCS: 36415; 70450; 70551; 71045; 73721; 74176; 80053; 80061; 81001; 83880; 84443; 84484; 85025; 85610; 85730; 87040; 87086; 87426; 93005; 95819; 96361; 96365; 96367; 96372; 96375; 97110; 97163; 97530; 99291; G0378